=== PATIENT | female | born 1945 | race Caucasian/White ===

== ENCOUNTER 2022-01-02 12:26 | Inpatient (IN) | payer OTHER ==
[2022-01-02 14:11] VITALS: BMI 16.9
[2022-01-02] MEDS ORDERED: IBUPROFEN 600 MG TABLET (FP) PO PRN (15:10)
[2022-01-02] MEDS ORDERED: ACETAMINOPHEN 325 MG TABLET (FP) PO PRN ×2 (15:10)
[2022-01-02] MEDS ORDERED: MAGNESIUM HYDROX 2400MG/30ML ORAL SUSPENSION 30 ML CUP PO PRN (15:10)
[2022-01-02] MEDS ORDERED: LOPERAMIDE HCL 2 MG CAPSULE PO PRN (15:10)
[2022-01-02] MEDS ORDERED: MAGNESIUM CITRATE 300 ML BOTTLE PO PRN (15:10)
[2022-01-02] MEDS ORDERED: IBUPROFEN 400 MG TABLET (FP) PO PRN (15:10)
[2022-01-02] MEDS ORDERED: NALOXONE HCL (KLOXXADO) 8 MG SPRAY NS PRN (15:10)
[2022-01-02] MEDS ORDERED: BISMUTH SUBSALICYLATE 262 MG/15 ML BTL PO PRN (15:10)
[2022-01-02] MEDS ORDERED: NICOTINE 10 MG CARTRIDGE (INHALER) IH PRN (15:10)
[2022-01-02] MEDS ORDERED: METHOCARBAMOL 500 MG TABLET PO PRN (15:10)
[2022-01-02] MEDS ORDERED: BENZOCAINE/MENTHOL (CHLORASEPTIC ) LOZENGE MM PRN (15:10)
[2022-01-02] MEDS ORDERED: ONDANSETRON *ODT* 4 MG TABLET SL PRN (15:10)
[2022-01-02] MEDS ORDERED: DICYCLOMINE HCL 10 MG CAPSULE PO PRN (15:10)
[2022-01-02] MEDS ORDERED: MAG HYDROX/AL HYDROX/SIMETH 30 ML UNIT-DOSE CUP PO PRN (15:10)
[2022-01-02] MEDS ORDERED: cloNIDine HCL 0.1 MG TABLET PO ONE (15:16)
[2022-01-02] MEDS ORDERED: cloNIDine HCL 0.1 MG TABLET ONE (15:22)
[2022-01-02] MEDS: PRENATAL VITAMINS W/ FOLIC ACID TABLET (FP) PO SCH (16:01)
[2022-01-02] MEDS: LOSARTAN POTASSIUM 50 MG TABLET PO SCH (16:01)
[2022-01-02] MEDS: NICOTINE 21 MG/24 HOURS TOPICAL PATCH TD SCH (16:02)
[2022-01-02] MEDS: chlordiazePOXIDE HCL 10 MG CAPSULE PO SCH ×4 (16:27→22:09)
[2022-01-02] MEDS ORDERED: hydrOXYzine PAMOATE 25 MG CAPSULE (FP) PO SCH (18:00)
[2022-01-02] MEDS: THIAMINE HCL 100 MG TABLET (FP) PO SCH (22:08)
[2022-01-02] MEDS: MELATONIN 5 MG TABLETS PO SCH (22:08)
[2022-01-03] MEDS: chlordiazePOXIDE HCL 10 MG CAPSULE PO SCH ×2 (06:25→17:50)
[2022-01-03] MEDS ORDERED: cloNIDine HCL 0.1 MG TABLET PO PRN (08:32)
[2022-01-03] MEDS: LOSARTAN POTASSIUM 50 MG TABLET PO SCH (09:37)
[2022-01-03] MEDS: PRENATAL VITAMINS W/ FOLIC ACID TABLET (FP) PO SCH (09:39)
[2022-01-03] MEDS: NICOTINE 21 MG/24 HOURS TOPICAL PATCH TD SCH (09:39)
[2022-01-03] MEDS: methaDONE HCL 10 MG TABLET PO SCH (12:34)
[2022-01-03 12:54] LABS: HEMATOCRIT 33.9 % (32.4-45.2); HEMOGLOBIN 10.7 GM/dL (10.7-15.3); MCH 26.8 pg (25.7-33.7); MCHC 31.6 g/dl (32.0-36.0); MEAN CELL VOLUME 84.8 fl (80-96); MEAN PLT VOLUME 7.9 fl (7.5-11.1); PLATELET COUNT 127 10^3/uL (134-434); RDW 15.3 % (11.6-15.6)
[2022-01-03 13:02] LABS: ALBUMIN 3.5 g/dl (3.4-5.0); CALCIUM 10.6 mg/dL (8.5-10.1); CREATININE 0.6 mg/dL (0.55-1.3)
[2022-01-03 13:03] LABS: BILIRUBIN,TOTAL 0.5 mg/dL (0.2-1)
[2022-01-03 13:04] LABS: WHITE BLOOD COUNT 1.7 K/mm3 (4.0-10.0)
[2022-01-03 20:49] VITALS: RESP 18
[2022-01-03] MEDS: MELATONIN 5 MG TABLETS PO SCH (22:45)
[2022-01-03] MEDS: THIAMINE HCL 100 MG TABLET (FP) PO SCH (22:45)
[2022-01-04] MEDS ORDERED: chlordiazePOXIDE HCL 10 MG CAPSULE PO ONE (05:00)
[2022-01-04] MEDS: methaDONE HCL 10 MG TABLET PO SCH (05:37)
[2022-01-04 06:08] VITALS: TEMP 97.1
[2022-01-04 09:16] VITALS: BP 101/54; PULSE 79
[2022-01-04] MEDS: LOSARTAN POTASSIUM 50 MG TABLET PO SCH (09:51)
[2022-01-04] MEDS: NICOTINE 21 MG/24 HOURS TOPICAL PATCH TD SCH (09:53)
[2022-01-04] MEDS: PRENATAL VITAMINS W/ FOLIC ACID TABLET (FP) PO SCH (09:53)
== END 2022-01-04 10:51 | disposition home or self-care (01) | DRG 897 ==
LOC: YASAS 12:26 → Y6N 14:55 → UNDOADMIN 14:55
PROVIDERS: ADMIT Allergy & Immunology; ATTEND Family Medicine Addiction Medicine
PROC: HZ2ZZZZ Detoxification Services for Substance Abuse Treatment (ICD-10-PCS; principal; 2022-01-02)
DX: F10.230 Alcohol dependence with withdrawal, uncomplicated (principal); F11.20 Opioid dependence, uncomplicated; F17.210 Nicotine dependence, cigarettes, uncomplicated; D70.2 Other drug-induced agranulocytosis; I10 Essential (primary) hypertension; M06.9 Rheumatoid arthritis, unspecified; Z99.89 Dependence on other enabling machines and devices; Z28.310 Unvaccinated for COVID-19; Z28.20 Immunization not carried out because of patient decision for unspecified reason
CPT/HCPCS: 36415; 80053; 85027; 86780; C9803-CS; U0003; U0005